=== PATIENT | female | born 1940 | race Caucasian/White ===

== ENCOUNTER → 2016-03-22 | Outpatient (CLI) | payer BC, OTHER ==
[2016-03-22 10:18] LABS: HEMOGLOBIN A1C 6.69 % (4.2-6.0); MEAN BLOOD GLUCOSE (CALC) 136.777 mg/dL
[2016-03-22 10:23] LABS: BILIRUBIN,TOTAL 0.7 mg/dL (0.3-1.2); BUN/CREATININE RATIO 22.5 (6-20); CALCIUM 9.3 mg/dL (8.7-10.7); CREATININE 0.8 mg/dL (0.50-1.20); LDL CHOLESTEROL,CALCULATED 68.4 mg/dL; POTASSIUM 4.1 meq/L (3.8-5.2)
== END ==
LOC: LAB 09:34
PROVIDERS: ATTEND Nurse Practitioner Family
DX: E11.9 Type 2 diabetes mellitus without complications (principal); E78.5 Hyperlipidemia, unspecified; I10 Essential (primary) hypertension
CPT/HCPCS: 36415; 80048; 82247; 82465; 82550; 82977; 83036; 83718; 84075; 84450; 84460; 84478

== ENCOUNTER → 2016-06-24 | Outpatient (CLI) | payer BC, OTHER ==
[2016-06-24 07:18] LABS: HEMOGLOBIN A1C 7.04 % (4.2-6.0)
[2016-06-24 07:58] LABS: BUN/CREATININE RATIO 23.33 (6-20); CALCIUM 10.4 mg/dL (8.7-10.7); CHOL/HDL RATIO 2.59 RATIO (0-4.0); LDL CHOLESTEROL,CALCULATED 54.4 mg/dL
[2016-06-24 10:17] LABS: CREATININE, URINE 167.2 MG/DL (15-500)
== END ==
LOC: LAB 06:41
PROVIDERS: ATTEND Nurse Practitioner Family
DX: E11.9 Type 2 diabetes mellitus without complications (principal); E78.5 Hyperlipidemia, unspecified; I10 Essential (primary) hypertension
CPT/HCPCS: 36415; 80048; 82043; 82247; 82465; 82550; 82977; 83036; 83718; 84075; 84450; 84460; 84478

== ENCOUNTER → 2016-06-28 | Outpatient (CLI) | payer BC, OTHER ==
[2016-06-29 14:55] LABS: 24 HOUR URINE TOTAL VOLUME 4475 ML
== END ==
LOC: LAB 06:46
PROVIDERS: ATTEND Nurse Practitioner Family
DX: R80.9 Proteinuria, unspecified (principal)
CPT/HCPCS: 84156

== ENCOUNTER → 2016-07-08 | Outpatient (CLI) | payer BC, OTHER ==
--- NOTE | 2016-07-08 21:36 | DI ---
CERVICAL SPINE SERIES, 07/08/2016 3:24 PM: Clinical History: Right shoulder pain. Previous Exam: None at this facility. 3 routine upright views are submitted. The vertebral bodies are normal in height and there is anterio r and posterior bony proliferative change between C4-5 through C6-7. The same disc spaces show severe narrowing. The C2-3 and C3-4 disc spaces are of normal. Height. Posterior alignment is normal. Arthr itic changes are present in the zygapophyseal joints bilaterally at all levels but most pronounced be tween C2-3 through C4-5. Arthritic changes are also present in the uncovertebral joints bilaterally b etween C4-5 and C6-7. C1 articulates normally with C2 and the occiput. Prevertebral soft tissue plane s are normal. The lung apices are normal. Readin. Severe disc space narrowing between C4-5 and C6-7 with anterior and posterior bony proliferative change. 2. Arthritic changes are present in the zygapophyseal joints bilaterally between C2-3 through C4-5 a nd in the uncovertebral joints bilaterally between C4-5 and C6-7.
--- NOTE | 2016-07-08 21:38 | DI ---
RIGHT SHOULDER, 07/08/2016 3:24 PM: Clinical History: Right shoulder pain. Previous Exam: None at this facility. 4 views are submitted. There is no acute soft tissue, osseous, or joint abnormality. The right apex a nd the visualized portions of the right lung are normal. Reading: Normal right shoulder exam.
== END ==
LOC: ORTHO 15:47
PROVIDERS: ATTEND Orthopaedic Surgery
DX: M25.511 Pain in right shoulder (principal); M75.41 Impingement syndrome of right shoulder; M48.02 Spinal stenosis, cervical region
CPT/HCPCS: 72040; 73030

== ENCOUNTER → 2016-07-19 | Outpatient (CLI) | payer BC, OTHER ==
--- NOTE | 2016-07-20 08:48 | DI ---
MRI CERVICAL SPINE W/O CN,07/19/2016 3:01 PM: Clinical History: Hyperreflexia. Previous Exam: None at this facility. Findings: Multiplanar MR images are obtained through the cervical spine without contrast, and demonstrate diffu se degenerative changes with loss of intervertebral disc height and uncovertebral joint osteophyte fo rmation. There is mild facet degenerative change. There is also some mild marrow edema involving the fifth sixth and seventh cervical levels. Signal within the spinal cord is within normal limits. There is normal course and caliber. The professor of finance ior fossa is unremarkable. The intraorbital structures are unremarkable. The prevertebral soft tissues are unremarkable. Individual intervertebral disc spaces: C2/3: No significant stenosis. C3/4: No significant stenosis. C4/5: There is disc desiccation and a broad-based disc bulge with some uncovertebral joint osteophyte s causing some minimal central canal stenosis with mild bilateral neural foraminal narrowing. C5/6: There is disc desiccation with uncovertebral joint osteophytes contributing to mild central can al stenosis and mild to moderate left neural foraminal narrowing. C6/7: There is disc desiccation and a broad-based disc bulge with some uncovertebral joint osteophyte s contributing to minimal central canal stenosis and no significant neural foraminal narrowing. C7/T1: No significant stenosis. Impression: C4/5: There is disc desiccation and a broad-based disc bulge with some uncovertebral joint osteophyte s causing some minimal central canal stenosis with mild bilateral neural foraminal narrowing. C5/6: There is disc desiccation with uncovertebral joint osteophytes contributing to mild central can al stenosis and mild to moderate left neural foraminal narrowing. C6/7: There is disc desiccation and a broad-based disc bulge with some uncovertebral joint osteophyte s contributing to minimal central canal stenosis and no significant neural foraminal narrowing.
--- NOTE | 2016-07-20 09:30 | DI ---
XR C-SPINE COMPLETE MIN 4VW,07/19/2016 3:01 PM: Clinical History: Hyperreflexia. Previous Exam: July 08, 2016 Findings: AP, lateral, flexion and extension views of the cervical spine are obtained, and demonstrate anatomic alignment without fractures. Diffuse degenerative changes are noted throughout the mid and lower cer vical spine with endplate osteophyte formation and uncovertebral joint osteophytes. Mild degenerative changes of the posterior articulating facets are also noted. Impression: Diffuse degenerative changes of the cervical spine without fractures.
== END ==
LOC: MRI 14:54
PROVIDERS: ATTEND Nurse Practitioner Family
DX: R29.2 Abnormal reflex (principal)
CPT/HCPCS: 72050; 72141

== ENCOUNTER 2016-07-29 10:07 | Day surgery (SDC) | payer BC, OTHER ==
[~2016-07-29 10:07] MED LIST: DEXAMETHASONE SOD PHOSPHATE 4 MG/1 ML VIAL IM ONE; Iopamidol Inj 61% 50 ML VIAL IV ONE; TRIAMCINOLONE ACETONIDE 40 MG/1 ML IM ONE
[2016-07-29 11:01] VITALS: RESP 16
--- NOTE | 2016-07-29 11:47 | GEN.OPNOTE ---
Interlaminar RASTA Procedure: Interlaminar Epidural Steriod Injection Procedure Code - Neurosurgery: 15530 : Cervical Epidural Injection (Single) -: Consent: Rationale for procedure, nature of procedure, possible risks and benefits were discussed with the patient. Risks including allergic reaction to medications, known effects of steroid medications including transient elevation in blood sugar with aggravation of pre-existing diabetes and remote risk of aseptic necrosis of the hip. Pain at the injection site, inadvertent dural puncture with resultant in CSF leak and headache possibly requiring further treatment. Infection or bleeding with potential risk of neurologic injury with weakness, paralysis or were all reviewed with the patient who wished to proceed. Anesthesia, sedation: No intravenous access or sedation was used. Physiologic monitoring of pulse and oxygen saturation was utilized. Procedure: The patient was placed prone on the operating room table, prepped with Chloroprep and sterilely draped. The skin was anesthetized with 1% Buffered Xylocaine. Under fluoroscopic control a 22-gauge Touhy needle was advanced into the epidural space at the C67 level. Using loss-of- resistance technique the epidural space was identified. Omnipaque was injected under real- time fluoroscopy demonstrating an epidurogram. Following this 3 ml of a mixture of triamcinolone, 10 mg dexamethasone and 1cc saline was injected epidurally. AP and lateral images of the final needle placement were obtained. The needle was removed and the patient returned to the post procedure recovery room where they were monitored for any side effects. Pain assessment: Preprocedure pain []/10, post procedure pain []/10. Discharge instructions: Patient was given a pain log to be filled out and returned. A delayed response to the steroids of 2-5 days was discussed. Dx Cervical Degenerative Disc Disease
[2016-07-29 12:06] VITALS: TEMP 97.8
== END 2016-07-29 12:00 | disposition home or self-care (01) ==
LOC: SDSC 10:07
PROVIDERS: ATTEND Pain Medicine Interventional Pain Medicine
DX: M50.323 Other cervical disc degeneration at C6-C7 level (principal)
CPT/HCPCS: 76000; J1100

== ENCOUNTER → 2016-10-21 | Outpatient (CLI) | payer BC, OTHER ==
[2016-10-21 09:30] LABS: HEMOGLOBIN A1C 6.68 % (4.2-6.0)
[2016-10-21 09:32] LABS: BUN/CREATININE RATIO 23.63 (6-20); CALCIUM 9.8 mg/dL (8.7-10.7); CHOL/HDL RATIO 2.63 RATIO (0-4.0); LDL CHOLESTEROL,CALCULATED 41.8 mg/dL
== END ==
LOC: LAB 08:51
PROVIDERS: ATTEND Nurse Practitioner Family
DX: E11.9 Type 2 diabetes mellitus without complications (principal); E78.5 Hyperlipidemia, unspecified; I10 Essential (primary) hypertension; E55.9 Vitamin D deficiency, unspecified
CPT/HCPCS: 36415; 80048; 82247; 82306; 82465; 82550; 82977; 83036; 83718; 84075; 84450; 84460; 84478